=== PATIENT | male | born 1945 | race Caucasian/White ===

== ENCOUNTER 2023-06-23 07:22 | Day surgery (SDC) | payer MEDICARE, OTHER ==
[2023-06-21 08:22] LABS: BASOPHILS # (AUTO) 0.05 K/uL (0.00-0.20); BASOPHILS % (AUTO) 0.7 % (0.0-5.0); EOSINOPHILS # (AUTO) 0.15 K/uL (0.00-0.70); EOSINOPHILS % (AUTO) 2.1 % (0.0-8.0); HEMATOCRIT 39.3 % (42-54); IMMATURE GRANULOCYTE ABSOLUTE 0.02 K/uL (0-1); LYMPHOCYTES # (AUTO) 1.3 K/uL (1.0-4.8); LYMPHOCYTES % (AUTO) 17.8 % (21.0-51.0); MEAN CORPUSCULAR HEMOGLOBIN 29.9 pg (27.0-33.0); MEAN CORPUSCULAR HGB CONC 32.3 g/dL (32.0-36.0); MEAN CORPUSCULAR VOLUME 92.5 fL (79-99); MONOCYTES # (AUTO) 0.7 K/uL (0.1-1.0); MONOCYTES % (AUTO) 9.2 % (3.0-13.0); NEUTROPHILS % (AUTO) 69.9 % (40.0-77.0); PLATELET COUNT (AUTO) 218 K/uL (130-400); RED BLOOD CELL COUNT(AUTO) 4.25 MIL/uL (4.50-6.20); RED CELL DISTRIBUTION WIDTH 13.8 % (11.0-15.5); WHITE BLOOD COUNT (AUTO) 7.2 K/uL (4.8-10.8)
[2023-06-21 08:29] LABS: INR 1.54 (0.85-1.15); PROTHROMBIN TIME 17.6 SEC (9.6-11.6)
[2023-06-21 08:31] LABS: PARTIAL THROMBOPLASTIN TIME 34.2 SEC (26.3-35.5)
[2023-06-21 08:35] LABS: POTASSIUM 4.5 mmol/L (3.5-5.1)
[2023-06-21 09:05] VITALS: BP 140/66; PULSE 57; RESP 18
[~2023-06-23] VITALS: Ht 188 cm; Wt 80.0 kg
[2023-06-23] VITALS (15 sets, daily range): BP systolic 129–167; BP diastolic 60–89; PULSE 48–65; RESP 14–17
[~2023-06-23 07:22] MED LIST: BIMA12.5OS OU; EZET10TA48 PO; FAMO20TA8 PO; GLUC-252 PO; METO-408 PO; MONT-39 PO; NITR0.4T50 SL; PRED5TAB PO; ROSU10TA28 PO; TICA90TA PO; WARF-67 PO
[2023-06-23] MEDS ORDERED: NALOXONE HCL 0.4 MG/1 ML ML ONE (08:11)
[2023-06-23] MEDS ORDERED: FLUMAZENIL 0.1MG/1ML 5ML VIAL IV ONE (08:11)
[2023-06-23] MEDS: LIDOCAINE HCL 2% VISCOUS 15 ML UDCUP PO ONE (08:16)
[2023-06-23] MEDS: 0.9%NACL 1000ML 1,000 ML IV SCH (08:17)
[2023-06-23] MEDS: FENTANYL CITRATE PF 50 MCG/1 ML 2ML VIAL IVP ONE (09:10)
[2023-06-23] MEDS: MIDAZOLAM HCL 1 MG/ML 2ML VIAL IVP ONE (09:11)
== END 2023-06-23 10:15 | disposition home or self-care (01) ==
LOC: DAH 07:22
PROVIDERS: ATTEND Student in an Organized Health Care Education/Training Program
DX: I82.612 Acute embolism and thrombosis of superficial veins of left upper extremity (principal); I08.0 Rheumatic disorders of both mitral and aortic valves; I44.0 Atrioventricular block, first degree; R55 Syncope and collapse; I21.4 Non-ST elevation (NSTEMI) myocardial infarction; I25.5 Ischemic cardiomyopathy; I10 Essential (primary) hypertension; E78.00 Pure hypercholesterolemia, unspecified; Z79.01 Long term (current) use of anticoagulants; Z95.5 Presence of coronary angioplasty implant and graft; Z90.49 Acquired absence of other specified parts of digestive tract; Z98.890 Other specified postprocedural states; Z82.49 Family history of ischemic heart disease and other diseases of the circulatory system; Z79.899 Other long term (current) drug therapy
CPT/HCPCS: 80048; 85025; 85610; 85730; 36415; 93005; 93325; 93312; J3010; J7030; J2250; A4615; A4215; A4223 ×3; A4657; A7002; A4222; A4221; A4663; A4216 ×2; A4606; 99152; J2310; J3490; G0500